=== PATIENT | female | born 1975 | race Native Hawaiian/Other Pacific Islander ===

== ENCOUNTER 2016-03-22 11:12 | Outpatient (CLI) | payer BC | END 2016-03-22 20:10 | disposition home or self-care (01) | LOC: LABW 11:12 | DX: Z79.01 Long term (current) use of anticoagulants (principal); Z51.81 Encounter for therapeutic drug level monitoring | CPT/HCPCS: 36415; 85610 ==

== ENCOUNTER 2019-03-28 14:10 | Outpatient (CLI) | payer BC | END 2019-03-28 20:32 | disposition home or self-care (01) | LOC: RESP 14:10 | DX: I35.9 Nonrheumatic aortic valve disorder, unspecified (principal) | CPT/HCPCS: 93306 ==

== ENCOUNTER 2020-10-27 09:58 | Outpatient (CLI) | payer BC | END 2020-10-27 22:16 | disposition home or self-care (01) | LOC: RESP 09:58 | PROVIDERS: ATTEND Internal Medicine Cardiovascular Disease | DX: I26.99 Other pulmonary embolism without acute cor pulmonale (principal); I35.9 Nonrheumatic aortic valve disorder, unspecified | CPT/HCPCS: Q9963 ==